=== PATIENT | female | born 1950 | race Hispanic/Latino ===

== ENCOUNTER → 2022-04-09 | Outpatient (CLI) | payer MEDICARE ==
[~2022-04-09] MED LIST: REGADENOSON 0.4 MG/5 ML PF SYG IVP SCH
== END | disposition home or self-care (01) ==
LOC: SHCH 08:20
PROVIDERS: ATTEND Internal Medicine Cardiovascular Disease
DX: I11.9 Hypertensive heart disease without heart failure (principal); Z91.89 Other specified personal risk factors, not elsewhere classified
CPT/HCPCS: 78452; 96374; 93017; J2785; A9500 ×2

== ENCOUNTER → 2023-05-27 | Outpatient (CLI) | payer MEDICARE | END | disposition home or self-care (01) | LOC: RAH 15:21 | PROVIDERS: ATTEND Internal Medicine | DX: M16.11 Unilateral primary osteoarthritis, right hip (principal); M16.10 Unilateral primary osteoarthritis, unspecified hip; M54.16 Radiculopathy, lumbar region; M54.31 Sciatica, right side | CPT/HCPCS: 73502 ==

== ENCOUNTER 2023-12-04 13:05 | Emergency (ER) | payer MEDICARE ==
[~2023-12-04] VITALS: Ht 162.6 cm; Wt 78.0 kg
[2023-12-04] MEDS: ONDANSETRON 4MG INJ IVP ONE (13:23)
[2023-12-04] MEDS: LACTATED RINGERS 1000ML 1,000 ML IV ONE (13:23)
[2023-12-04 13:39] LABS: BASOPHILS # (AUTO) 0.05 K/uL (0.00-0.20); BASOPHILS % (AUTO) 0.4 % (0.0-5.0); EOSINOPHILS # (AUTO) 0.15 K/uL (0.00-0.70); EOSINOPHILS % (AUTO) 1.3 % (0.0-8.0); IMMATURE GRANULOCYTE ABSOLUTE 0.03 K/uL (0-1); LYMPHOCYTES # (AUTO) 3.9 K/uL (1.0-4.8); LYMPHOCYTES % (AUTO) 35.1 % (21.0-51.0); MEAN CORPUSCULAR HEMOGLOBIN 30.8 pg (27.0-33.0); MEAN CORPUSCULAR HGB CONC 33.9 g/dL (32.0-36.0); MEAN CORPUSCULAR VOLUME 90.7 fL (79-99); MONOCYTES # (AUTO) 0.9 K/uL (0.1-1.0); MONOCYTES % (AUTO) 7.6 % (3.0-13.0); NEUTROPHILS # (AUTO) 6.2 K/uL (1.8-7.7); NEUTROPHILS % (AUTO) 55.3 % (40.0-77.0); PLATELET COUNT (AUTO) 176 K/uL (130-400); RED BLOOD CELL COUNT(AUTO) 4.52 MIL/uL (4.00-5.50); RED CELL DISTRIBUTION WIDTH 12.3 % (11.0-15.5); WHITE BLOOD COUNT (AUTO) 11.2 K/uL (4.8-10.8)
[2023-12-04 13:44] LABS: APPEARANCE,URINE CLEAR (CLEAR); BILIRUBIN,URINE NEGATIVE (NEGATIVE); COLOR,URINE YELLOW (YELLOW); GLUCOSE, URINE (UA) NEGATIVE (NEGATIVE); KETONES,URINE NEGATIVE (NEGATIVE); LEUKOCYTE ESTERASE ,URINE NEGATIVE Leu/uL (NEGATIVE); NITRATE,URINE NEGATIVE (NEGATIVE); OCCULT BLOOD,URINE SMALL (NEGATIVE); PH,URINE 5.5 (5.0-8.0); PROTEIN,URINE NEGATIVE (NEGATIVE); UROBILINOGEN,URINE 0.2 mg/dL (0.2-1.0)
[2023-12-04 13:45] LABS: ADD UA MICROSCOPIC YES
[2023-12-04 13:46] LABS: CREATININE 0.8 mg/dL (0.5-1.0); POTASSIUM 4.1 mmol/L (3.5-5.1)
[2023-12-04 13:56] LABS: ALBUMIN 3.6 g/dL (3.5-5.0); BILIRUBIN,TOTAL 0.4 mg/dL (0.2-1.0); MAGNESIUM 1.7 mg/dL (1.80-2.40); TOTAL PROTEIN, SERUM 7.1 g/dL (6.0-8.3)
[2023-12-04 14:12] LABS: BACTERIA,URINE RARE /HPF (None Seen); MUCUS,URINE RARE LPF (None Seen); OTHER CASTS, URINE 1 /LPF (None Seen); SQUAMOUS EPITHELIAL CELL,UR RARE /HPF (0-2)
[2023-12-04] MEDS: MAG/ALUM/SIMETH 30 ML UDCUP PO ONE (14:19)
[2023-12-04] MEDS: LIDOCAINE HCL 2% VISCOUS 15 ML UDCUP PO ONE (14:19)
[2023-12-04] MEDS ORDERED: PANT40TA55 PO (14:27)
[2023-12-04 14:30] VITALS: BP 160/88; PULSE 76; RESP 20; O2SAT 94
== END 2023-12-04 14:34 | disposition home or self-care (01) ==
LOC: EDH 13:05
DX: K21.9 Gastro-esophageal reflux disease without esophagitis (principal); E11.9 Type 2 diabetes mellitus without complications; E78.00 Pure hypercholesterolemia, unspecified; I10 Essential (primary) hypertension; Z90.49 Acquired absence of other specified parts of digestive tract
CPT/HCPCS: 99284; 96374; 80061; 82550; 83735; 84484; 80053; 83690; 85025; 81001; 36415; 93005; J7120; J2405

== ENCOUNTER 2024-05-03 06:56 | Day surgery (SDC) | payer MEDICARE ==
--- NOTE | 2024-05-01 12:43 | EKG ---
[facility] Test Date: 2024-05-01 Test Time: 13:39:37 Pat Name: CATHERINE VÁSQUEZ Department: [facility] Room: Gender: F Marketing Strategy Lead: [id number] : 1950 Requested By: JUAN RAMON BARBER Order Number: [id number] Reading MD: Iris Olson Measurements Intervals [place] Rate: 64 P: 34 IN: 194 QRS: -13 QRSD: 86 T: 17 QT: 446 QTc: 460 Interpretive Statements Normal sinus rhythm Inferior infarct , age undetermined Possible Anterior infarct , age undetermined Compared to ECG 12/04/2023 13:23:12 T-wave abnormality no longer present Myocardial infarct finding still present Electronically Signed On 05-02-2024 05:14:19 TEST AUTOMATION ARCHITECT by Iris Olson Please click the below link to view image of tracing.
[2024-05-01 13:11] LABS: BASOPHILS # (AUTO) 0.05 K/uL (0.00-0.20); BASOPHILS % (AUTO) 0.5 % (0.0-5.0); EOSINOPHILS # (AUTO) 0.19 K/uL (0.00-0.70); EOSINOPHILS % (AUTO) 1.7 % (0.0-8.0); HEMATOCRIT 41.7 % (36-48); IMMATURE GRANULOCYTE ABSOLUTE 0.02 K/uL (0-1); LYMPHOCYTES # (AUTO) 3.8 K/uL (1.0-4.8); LYMPHOCYTES % (AUTO) 34.3 % (21.0-51.0); MEAN CORPUSCULAR HEMOGLOBIN 29.4 pg (27.0-33.0); MEAN CORPUSCULAR HGB CONC 32.9 g/dL (32.0-36.0); MEAN CORPUSCULAR VOLUME 89.5 fL (79-99); MONOCYTES # (AUTO) 0.6 K/uL (0.1-1.0); MONOCYTES % (AUTO) 5.6 % (3.0-13.0); NEUTROPHILS # (AUTO) 6.3 K/uL (1.8-7.7); NEUTROPHILS % (AUTO) 57.7 % (40.0-77.0); PLATELET COUNT (AUTO) 223 K/uL (130-400); RED BLOOD CELL COUNT(AUTO) 4.66 MIL/uL (4.00-5.50)
[2024-05-01 13:20] LABS: CREATININE 0.7 mg/dL (0.5-1.0); POTASSIUM 4.5 mmol/L (3.5-5.1)
[2024-05-01 13:39] LABS: INR 0.97 (0.85-1.15); PROTHROMBIN TIME 10.5 SEC (9.6-11.6)
[2024-05-01 13:40] LABS: PARTIAL THROMBOPLASTIN TIME 27.6 SEC (26.3-35.5)
[2024-05-01 13:41] LABS: B-TYPE NATRIURETIC PEPTIDE 28 pg/mL (0-100)
[2024-05-01 14:33] LABS: APPEARANCE,URINE CLEAR (CLEAR); BILIRUBIN,URINE NEGATIVE (NEGATIVE); COLOR,URINE LIGHT-YELLOW (YELLOW); GLUCOSE, URINE (UA) NEGATIVE (NEGATIVE); KETONES,URINE NEGATIVE (NEGATIVE); LEUKOCYTE ESTERASE ,URINE NEGATIVE Leu/uL (NEGATIVE); NITRATE,URINE NEGATIVE (NEGATIVE); PROTEIN,URINE NEGATIVE (NEGATIVE); UROBILINOGEN,URINE 0.2 mg/dL (0.2-1.0)
[2024-05-01 14:34] LABS: ADD UA MICROSCOPIC YES
[2024-05-01 14:38] LABS: MUCUS,URINE RARE LPF (None Seen); SQUAMOUS EPITHELIAL CELL,UR FEW /HPF (0-2)
[2024-05-01 14:52] VITALS: BP 157/78; PULSE 71; RESP 16; TEMP 98
--- NOTE | 2024-05-01 16:17 | HMCIMG ---
CHEST 1VW REASON: PRE OP COMPARISON: None. FINDINGS: Single view of the chest was obtained. Lungs are clear. Heart size is normal. There is no pulmonary vascular congestion. Mediastinum and bony thorax appear unremarkable. IMPRESSION: 1. Normal single view chest x-ray.
--- NOTE | 2024-05-02 10:34 | NUR ---
RE: LABS REPORTED WBC 11.0 (PT ASYMPTOMATIC) RESULTS TO HOANG BYRNE NP. RECEIVED ORDERS TO REPEAT LABS IN AM STAT.
[~2024-05-03] VITALS: Ht 157.5 cm; Wt 76.4 kg
[2024-05-03] VITALS (27 sets, daily range): BP systolic 125–181; BP diastolic 52–88; PULSE 59–73; RESP 11–21; TEMP 97.2–98
[~2024-05-03 06:56] MED LIST changes: +AMLO-257 PO; +ASPI-1443 PO; +GLIM4TAB36 PO; +INSULIN SQ; +LOSA100T59 PO; +METF-446 PO; +MVIT PO; +OMEP40CA21 PO; -REGADENOSON 0.4 MG/5 ML PF SYG IVP SCH; +ROSU40TA88 PO
[2024-05-03] MEDS: 0.9%NACL 1000ML 1,000 ML IV ONE (07:45)
[2024-05-03 08:29] LABS: BASOPHILS # (AUTO) 0.04 K/uL (0.00-0.20); BASOPHILS % (AUTO) 0.4 % (0.0-5.0); EOSINOPHILS # (AUTO) 0.29 K/uL (0.00-0.70); EOSINOPHILS % (AUTO) 2.7 % (0.0-8.0); HEMATOCRIT 39.9 % (36-48); IMMATURE GRANULOCYTE ABSOLUTE 0.03 K/uL (0-1); LYMPHOCYTES # (AUTO) 3.2 K/uL (1.0-4.8); LYMPHOCYTES % (AUTO) 29.5 % (21.0-51.0); MEAN CORPUSCULAR HEMOGLOBIN 29.7 pg (27.0-33.0); MEAN CORPUSCULAR HGB CONC 32.8 g/dL (32.0-36.0); MEAN CORPUSCULAR VOLUME 90.5 fL (79-99); MONOCYTES # (AUTO) 0.7 K/uL (0.1-1.0); MONOCYTES % (AUTO) 6.5 % (3.0-13.0); NEUTROPHILS # (AUTO) 6.5 K/uL (1.8-7.7); NEUTROPHILS % (AUTO) 60.6 % (40.0-77.0); PLATELET COUNT (AUTO) 208 K/uL (130-400); RED BLOOD CELL COUNT(AUTO) 4.41 MIL/uL (4.00-5.50); RED CELL DISTRIBUTION WIDTH 13.9 % (11.0-15.5); WHITE BLOOD COUNT (AUTO) 10.8 K/uL (4.8-10.8)
[2024-05-03] MEDS ORDERED: NITROGLYCERIN 50MG VIAL ONE (08:55)
[2024-05-03] MEDS ORDERED: HEParin 10,000 UNIT/10ML (1,000 UNIT/ML) VIAL ONE (08:55)
[2024-05-03] MEDS ORDERED: HEParin-NS 1,000 UNIT/500 ML 1,000 ML IV ONE (08:55)
[2024-05-03] MEDS ORDERED: IOHEXOL 350 MG/ML 100ML INFUS..BTL IV ONE (08:55)
[2024-05-03] MEDS ORDERED: LIDOCAINE HCL 400MG/20ML VIAL ONE (08:55)
[2024-05-03] MEDS ORDERED: IOHEXOL-350 50ML VIAL IV ONE (08:56)
[2024-05-03] MEDS ORDERED: MIDAZOLAM HCL 1 MG/ML 2ML VIAL ONE (09:09)
[2024-05-03] MEDS ORDERED: FENTanyl CITRate PF 50 MCG/1 ML 2ML VIAL ONE (09:09)
[2024-05-03] MEDS ORDERED: LAbetaLOL 20MG VIAL ONE (09:45)
[2024-05-03] MEDS ORDERED: 0.9%NACL 1000ML 1,000 ML IV SCH (10:30)
--- NOTE | 2024-05-03 10:41 | PRN ---
DATE OF PROCEDURE: 05/03/2024 PROCEDURE PERFORMED: LEFT HEART CATHETERIZATION, LEFT VENTRICULOGRAM, LEFT AND RIGHT SELECTIVE CORONARY ANGIOGRAM, RIGHT COMMON FEMORAL ANGIOGRAM, AND CONSCIOUS SEDATION OPERATIONS CONSULTANT: JUAN RAMON BARBER MD, [facility] INDICATION: ABNORMAL LEXISCAN CARDIOLITE STRESS TEST WITH LATERAL WALL ISCHEMIA PROCEDURE NOTE: After informed consent was obtained the patient was prepped and draped in the usual sterile fashion. A 6 [place] arterial sheath was inserted in the right femoral artery using ultrasound guidance and micropuncture technique. There was a calcific plaque in the right common femoral artery and we went above this stenosis. Just below the entry was a calcific plaque with a 70% stenosis and we avoided Perclose suture closure at the end of the procedure. This was performed after fluoroscopic identification of bony landmarks to facilitate a more accurate puncture of the right common femoral artery. The arterial sheath was aspirated and flushed. A 6 [place] pigtail catheter was then advanced over a J- tipped guidewire to the ascending aorta and was prolapsed into the left ventricle. The catheter was aspirated and flushed and pressure measurements were obtained. A left ventriculogram was then performed in a 30 LOTT projection. A pullback procedure was then performed, and this catheter was removed over a J-tipped guidewire. A 6F JL-4 was then advanced to the ascending aorta over a J-tipped guidewire, was aspirated and flushed, and was used for selective left coronary angiograms in multiple obliquities. A JR-4 was advanced in a similar fashion to the ascending aorta over a J-tipped guidewire and was used for selective right coronary angiograms in multiple obliquities with findings as outlined below. A right common femoral angiogram was performed and demonstrated a calcific plaque just below puncture site and we elected to use manual compression for hemostasis with a thrombin pad. No hematoma was noted and the patient tolerated the procedure well and was returned to the holding area in stable condition. FINDINGS: LEFT HEART HEMODYNAMICS: The patient's LVEDP prior to LV-gram was 20 mm of mercury and improved after intraventricular nitroglycerin to 10 mm of mercury. Following the left ventriculogram the LVEDP was unchanged. LEFT VENTRICULOGRAM: A left ventriculogram in a 30 degree LOTT projection demonstrated hyperdynamic LV wall motion with an LVEF of greater than 70%. There were no segmental wall motion abnormalities. There was no mitral valve regurgitation. CORONARY ANGIOGRAM: LEFT MAIN: The left main coronary artery was normal and large. LEFT ANTERIOR DESCENDING: The left anterior descending had a 30% mid tubular stenosis and was tortuous but otherwise normal distally. The diagonal branches were likewise normal. LEFT CIRCUMFLEX: The left circumflex was nondominant and had a 40% eccentric stenosis at the left main bifurcation in a region of curving of the left circumflex. The ongoing left circumflex was normal and terminated as an OM3 branch. The OM1 branch had a 60% mid stenosis and distally bifurcated with each bifurcating branch having a 50% stenosis. The OM2 and OM3 branches were normal. RAMUS INTERMEDIATE BRANCH: There was no ramus intermediate branch. RIGHT CORONARY ARTERY: The right coronary artery was dominant and had 20% proximal and 20% mid plaques but was otherwise normal as were the PDA and posterolateral branches. IMPRESSION: Hyperdynamic LV systolic function with LVEF of greater than 70%. Uncontrolled hypertension in the cardiac catheterization laboratory. No mitral regurgitation. No aortic stenosis. Nonobstructive coronary artery disease with 30% mid LAD stenosis, 40% proximal left circumflex stenosis, 60% OM1 stenosis and 20% proximal and mid RCA stenoses. RECOMMENDATION: Continued risk factor modification, smoking cessation, statin therapy, and antiplatelet therapy. COMPLICATIONS OF PROCEDURE: None, the patient tolerated the procedure well and was returned to her room in stable condition. HEMOSTASIS: There was a calcific 70% stenosis at the right common femoral artery just beneath the puncture site and we elected to avoid Perclose suture closure in favor of manual compression. ESTIMATED BLOOD LOSS: Less than 10 mL. CONTRAST TOTAL: 135 mL. JUAN RAMON BARBER MD May 03, 2024 10:41
[2024-05-03] MEDS ORDERED: ATROPINE 1MG SYG IVP ONE (11:53)
[2024-05-03] MEDS: LAbetaLOL 20MG SYG IV PRN (12:37)
--- NOTE | 2024-05-03 16:43 | NUR ---
URINARY: VOIDED 350CC YELLOW COLOR URINE PER BEDPAN.
--- NOTE | 2024-05-03 16:45 | NUR ---
REPORT: REPORT GIVEN TO CATHERINE MACDONALD RN REGARDING PATIENTS STATUS.
== END 2024-05-03 18:01 | disposition home or self-care (01) ==
LOC: DAH 06:56
PROVIDERS: ATTEND Internal Medicine Cardiovascular Disease
DX: R94.39 Abnormal result of other cardiovascular function study (principal); I25.10 Atherosclerotic heart disease of native coronary artery without angina pectoris; I11.9 Hypertensive heart disease without heart failure; E11.9 Type 2 diabetes mellitus without complications; E78.5 Hyperlipidemia, unspecified; Z72.0 Tobacco use; Z79.84 Long term (current) use of oral hypoglycemic drugs; Z79.82 Long term (current) use of aspirin; Z79.01 Long term (current) use of anticoagulants; Z91.89 Other specified personal risk factors, not elsewhere classified; Z79.899 Other long term (current) drug therapy
CPT/HCPCS: 80048; 83880; 85025 ×2; 85610; 85730; 81001; 36415 ×2; 71045; 93005; 93458; 82948 ×2; C1894 ×3; J3010; J3490 ×3; J7030; J2250; J1644; Q9967 ×2; A4215; A6402; A4335; A4222; A4221; A4663; A4216; A4606; Q9965 ×2; A4223 ×3; A4554; 96360; 96361; 99156; 99157; J0461

== ENCOUNTER → 2024-09-12 | Outpatient (CLI) | payer MEDICARE ==
--- NOTE | 2024-09-12 14:15 | HMCIMG ---
NUCLEAR MEDICINE GASTRIC EMPTYING STUDY INDICATION: Nausea and abdominal distention RADIOPHARMACEUTICAL: Examination was performed with hard boiled egg, with 1.0 mCi 99 M technetium labeled sulfur colloid within. FINDINGS: Region of interest curves were drawn, and qualitatively, suboptimal gastric emptying noted. 50% emptying occurred at 123 minutes. IMPRESSION: Delayed gastric emptying.
== END | disposition home or self-care (01) ==
LOC: RAH 10:16
PROVIDERS: ATTEND Internal Medicine Gastroenterology
DX: K30 Functional dyspepsia (principal); R11.0 Nausea; R14.0 Abdominal distension (gaseous)
CPT/HCPCS: 78264; A9541